=== PATIENT | male | born 1990 ===

== ENCOUNTER 2020-01-28 08:10 | Outpatient (CLI) | payer SELFPAY ==
[2020-01-28 10:15] LABS: LDL Cholesterol Direct 101 mg/dL
[2020-01-28 10:21] LABS: Hemoglobin A1C 5.2 % (<5.7)
[2020-01-28 10:39] LABS: Cholesterol 230 mg/dL (0-200); Glucose 102 mg/dL (75-110)
[2020-01-28 10:48] LABS: Triglycerides 721 mg/dL (<150)
== END 2020-01-28 08:11 | disposition home or self-care (01) ==
DX: Z02.1 Encounter for pre-employment examination (principal)
CPT/HCPCS: 36415; 80061; 82947; 83036